=== PATIENT | male | born 1985 | race Caucasian/White ===

== ENCOUNTER 2018-02-16 12:08 | Inpatient (IN) | payer OTHER ==
[2018-02-16 13:20] LABS: HEMATOCRIT 38.4 % (42.0-52.0); HEMOGLOBIN 13.3 g/dl (14.0-18.0); MEAN CORPUSCULAR HEMOGLOBIN 32.5 pg (27.0-33.0); MEAN CORPUSCULAR HGB CONC 34.6 g/dl (32.0-36.5); MEAN CORPUSCULAR VOLUME 93.9 fl (80.0-96.0); PLATELET COUNT, AUTOMATED 165 10^3/uL (150-450); RED BLOOD COUNT 4.09 10^6/uL (4.30-6.10); RED CELL DISTRIBUTION WIDTH 11.1 % (11.5-14.5); WHITE BLOOD COUNT 4.4 10^3/uL (4.0-10.0)
[2018-02-16 13:46] LABS: AMPHETAMINES LEVEL URINE NEGATIVE (NEGATIVE); BARBITURATES URINE NEGATIVE (NEGATIVE); BENZODIAZEPINES URINE POSITIVE (NEGATIVE); CANNABINOIDS URINE NEGATIVE (NEGATIVE); COCAINE METABOLITE URINE NEGATIVE (NEGATIVE); METHADONE URINE NEGATIVE (NEGATIVE); OPIATES URINE NEGATIVE (NEGATIVE); PHENCYCLIDINE URINE NEGATIVE (NEGATIVE)
[2018-02-16 13:54] LABS: ACETAMINOPHEN LEVEL < 2.0 UG/ML (10.0-30.0); ALBUMIN 3.6 GM/DL (3.2-5.2); ALKALINE PHOSPHATASE 93 U/L (45-117); ALT/SGPT 15 U/L (12-78); ANION GAP 6 MEQ/L (8-16); AST/SGOT 13 U/L (7-37); BILIRUBIN,DIRECT < 0.1 MG/DL (0.0-0.2); BILIRUBIN,TOTAL 0.3 MG/DL (0.2-1.0); BLOOD UREA NITROGEN 16 MG/DL (7-18); CALCIUM LEVEL 8.3 MG/DL (8.5-10.1); CARBON DIOXIDE LEVEL 31 MEQ/L (21-32); CHLORIDE LEVEL 104 MEQ/L (98-107); CREATININE FOR GFR 1.32 MG/DL (0.70-1.30); ETHYL ALCOHOL (ETHANOL) < 0.003 % (0.000-0.010); GLOMERULAR FILTRATION RATE > 60.0 (>60); GLUCOSE, FASTING 93 MG/DL (70-100); POTASSIUM SERUM 4.2 MEQ/L (3.5-5.1); SALICYLATE LEVEL < 1.7 MG/DL (5.0-30.0); SODIUM LEVEL 141 MEQ/L (136-145); TOTAL PROTEIN 6.6 GM/DL (6.4-8.2)
[2018-02-16] MEDS ORDERED: MAALOX 30 ML SUSP *UDC PO (16:15)
[2018-02-16] MEDS ORDERED: traZODone 50 MG TAB PO (16:15)
[2018-02-16] MEDS ORDERED: MOM 30ML SUSPENSION UDC PO (16:15)
[2018-02-16] MEDS ORDERED: ACETAMINOPHEN TAB 650MG DOSE (2X325MG) PO (16:15)
[2018-02-16] MEDS: QUEtiapine FUMARATE 100 MG TAB PO (21:00)
[2018-02-16] MEDS: zolPIDEM TARTRATE 10MG TAB PO (21:00)
[2018-02-16] MEDS ORDERED: SUMAtriptan SUCCINATE 25 MG TAB PO (23:00)
[2018-02-17] MEDS: ESCITALOPRAM OXALATE 10 MG TAB (LEXAPRO) PO (08:17)
[2018-02-17] MEDS: MODAFINIL 200MG TABLET PO (11:18)
[2018-02-17] MEDS: NICOTINE 14 MG/24 HR TRANSDERMAL TD (13:01)
[2018-02-17] MEDS: OMEGA-3 1050MG CAPSULE PO (20:53)
[2018-02-17] MEDS: QUEtiapine FUMARATE 200 MG TAB PO (20:53)
[2018-02-17] MEDS: zolPIDEM TARTRATE 10MG TAB PO (20:53)
[2018-02-17] MEDS: NALTREXONE 50 MG TAB PO (20:53)
[2018-02-17] MEDS: PRAZOSIN 1 MG CAP PO (20:53)
[2018-02-18 06:41] LABS: HEMATOCRIT 38.7 % (42.0-52.0); HEMOGLOBIN 13.4 g/dl (14.0-18.0); MEAN CORPUSCULAR HEMOGLOBIN 31.9 pg (27.0-33.0); MEAN CORPUSCULAR HGB CONC 34.6 g/dl (32.0-36.5); MEAN CORPUSCULAR VOLUME 92.1 fl (80.0-96.0); PLATELET COUNT, AUTOMATED 171 10^3/uL (150-450); RED CELL DISTRIBUTION WIDTH 11.2 % (11.5-14.5); WHITE BLOOD COUNT 4.4 10^3/uL (4.0-10.0)
[2018-02-18 07:01] LABS: ALBUMIN 3.5 GM/DL (3.2-5.2); ALBUMIN/GLOBULIN RATIO 1.06 (1.00-1.93); ALKALINE PHOSPHATASE 89 U/L (45-117); ALT/SGPT 18 U/L (12-78); ANION GAP 3 MEQ/L (8-16); AST/SGOT 12 U/L (7-37); BILIRUBIN,TOTAL 0.3 MG/DL (0.2-1.0); BLOOD UREA NITROGEN 18 MG/DL (7-18); CALCIUM LEVEL 8.7 MG/DL (8.5-10.1); CARBON DIOXIDE LEVEL 35 MEQ/L (21-32); CHLORIDE LEVEL 106 MEQ/L (98-107); CREATININE FOR GFR 1.35 MG/DL (0.70-1.30); GLOMERULAR FILTRATION RATE > 60.0 (>60); GLUCOSE, FASTING 94 MG/DL (70-100); POTASSIUM SERUM 3.9 MEQ/L (3.5-5.1); SODIUM LEVEL 144 MEQ/L (136-145); TOTAL PROTEIN 6.8 GM/DL (6.4-8.2)
[2018-02-18] MEDS: ESCITALOPRAM OXALATE 10 MG TAB (LEXAPRO) PO (08:20)
[2018-02-18] MEDS ORDERED: NICOTINE 21MG/24HR 1 EA TRANSDERMAL TD (09:00)
[2018-02-18] MEDS: MODAFINIL 200MG TABLET PO (09:00)
[2018-02-18] MEDS: NICOTINE 14 MG/24 HR TRANSDERMAL TD (16:06)
[2018-02-18] MEDS ORDERED: QUEtiapine FUMARATE 100 MG TAB PO (21:00)
[2018-02-18] MEDS: OMEGA-3 1050MG CAPSULE PO (21:22)
[2018-02-18] MEDS: NALTREXONE 50 MG TAB PO (21:23)
[2018-02-18] MEDS: PRAZOSIN 1 MG CAP PO (21:23)
[2018-02-18] MEDS: QUEtiapine FUMARATE 200 MG TAB PO (21:23)
[2018-02-18] MEDS: zolPIDEM TARTRATE 10MG TAB PO (21:23)
[2018-02-19] MEDS: NICOTINE 14 MG/24 HR TRANSDERMAL TD (08:57)
[2018-02-19] MEDS: ESCITALOPRAM OXALATE 10 MG TAB (LEXAPRO) PO (08:57)
[2018-02-19] MEDS: hydrOXYzine 50 MG TAB PO ×2 (11:52→19:21)
[2018-02-19] MEDS: zolPIDEM TARTRATE 5 MG TAB PO (20:50)
[2018-02-19] MEDS: NALTREXONE 50 MG TAB PO (20:50)
[2018-02-19] MEDS: OMEGA-3 1050MG CAPSULE PO (20:50)
[2018-02-19] MEDS: QUEtiapine FUMARATE 200 MG TAB PO (20:50)
[2018-02-19] MEDS: PRAZOSIN 1 MG CAP PO (20:51)
[2018-02-20] MEDS: ESCITALOPRAM OXALATE 10 MG TAB (LEXAPRO) PO (08:23)
[2018-02-20] MEDS: hydrOXYzine 50 MG TAB PO (08:23)
== END 2018-02-20 12:30 | disposition home or self-care (01) | DRG 882 ==
LOC: M ED 12:08 → M ED INP 16:07 → M PSY 21:00
DX: F43.10 Post-traumatic stress disorder, unspecified (principal); F32.9 Major depressive disorder, single episode, unspecified; F17.220 Nicotine dependence, chewing tobacco, uncomplicated; R51 Headache; T43.605A Adverse effect of unspecified psychostimulants, initial encounter; Z91.82 Personal history of military deployment; R25.8 Other abnormal involuntary movements; Z87.820 Personal history of traumatic brain injury; Z87.442 Personal history of urinary calculi; Z79.899 Other long term (current) drug therapy; Z81.8 Family history of other mental and behavioral disorders; Z81.1 Family history of alcohol abuse and dependence

== ENCOUNTER → 2018-03-31 | Outpatient (CLI) | payer OTHER ==
[~2018-03-31] MED LIST: PROHANCE 279.3MG/ML 15ML VIAL (A9576) As Ordered; PROHANCE 279.3MG/ML 5ML VIAL (A9576) As Ordered
== END ==
LOC: M RAD 07:19
DX: M25.561 Pain in right knee (principal); M25.562 Pain in left knee; M25.461 Effusion, right knee; M25.462 Effusion, left knee; M94.261 Chondromalacia, right knee
CPT/HCPCS: A9576

== ENCOUNTER 2018-04-01 17:41 | Emergency (ER) | payer OTHER ==
[2018-04-01] MEDS: LIDOCAINE 2% MDV 20 ML VIAL SC (19:13)
== END 2018-04-01 20:35 | disposition home or self-care (01) ==
LOC: M ED 17:41
DX: S61.302A Unspecified open wound of right middle finger with damage to nail, initial encounter (principal); S61.210A Laceration without foreign body of right index finger without damage to nail, initial encounter; S61.011A Laceration without foreign body of right thumb without damage to nail, initial encounter; W31.2XXA Contact with powered woodworking and forming machines, initial encounter; Y92.098 Other place in other non-institutional residence as the place of occurrence of the external cause; F41.9 Anxiety disorder, unspecified; F32.9 Major depressive disorder, single episode, unspecified; K57.92 Diverticulitis of intestine, part unspecified, without perforation or abscess without bleeding; Z87.820 Personal history of traumatic brain injury; Z87.442 Personal history of urinary calculi; Z87.891 Personal history of nicotine dependence; Z79.899 Other long term (current) drug therapy
CPT/HCPCS: 73140

== ENCOUNTER 2018-04-08 13:05 | Emergency (ER) | payer OTHER ==
[2018-04-08] MEDS: LIDOCAINE 2% MDV 20 ML VIAL SC (13:45)
== END 2018-04-08 14:10 | disposition home or self-care (01) ==
LOC: M ED 13:05
DX: Z48.02 Encounter for removal of sutures (principal); L08.9 Local infection of the skin and subcutaneous tissue, unspecified; Z87.891 Personal history of nicotine dependence; Z79.899 Other long term (current) drug therapy
CPT/HCPCS: 99282

== ENCOUNTER → 2018-05-03 | Outpatient (CLI) | payer OTHER | LOC: M RAD 08:09 | DX: N20.0 Calculus of kidney (principal) | CPT/HCPCS: 74176 ==

== ENCOUNTER → 2018-06-14 | Outpatient (CLI) | payer OTHER ==
[2018-06-14 12:07] LABS: ERYTHROCYTE SEDIMENTATION RATE 1 mm/hr (0-15)
[2018-06-14 12:12] LABS: FREE T4 0.97 NG/DL (0.76-1.46)
[2018-06-16 00:37] LABS: TISSUE TRANSGLUTAMINASE IgA <2 U/mL (0-3)
== END ==
LOC: M LRY 10:05
DX: R19.4 Change in bowel habit (principal)

== ENCOUNTER → 2018-06-16 | Outpatient (REF) | payer OTHER | LOC: M LAB REF 09:56 | DX: R19.4 Change in bowel habit (principal) ==

== ENCOUNTER 2018-07-07 10:20 | Day surgery (SDC) | payer OTHER ==
[2018-07-07] MEDS: NS 1,000 ML IV (10:45)
[2018-07-07] MEDS ORDERED: PROPOFOL 200 MG/20 ML VIAL As Ordered ×2 (11:00→11:39)
== END 2018-07-07 12:45 | disposition home or self-care (01) ==
LOC: M OPP 10:20
DX: R19.4 Change in bowel habit (principal); R19.7 Diarrhea, unspecified; D12.3 Benign neoplasm of transverse colon; K57.30 Diverticulosis of large intestine without perforation or abscess without bleeding; G47.30 Sleep apnea, unspecified; F41.9 Anxiety disorder, unspecified; F32.9 Major depressive disorder, single episode, unspecified; M17.0 Bilateral primary osteoarthritis of knee; A15.0 Tuberculosis of lung; G43.909 Migraine, unspecified, not intractable, without status migrainosus; Z79.899 Other long term (current) drug therapy; F17.220 Nicotine dependence, chewing tobacco, uncomplicated; Z86.010 Personal history of colon polyps; Z22.322 Carrier or suspected carrier of Methicillin resistant Staphylococcus aureus; Z87.448 Personal history of other diseases of urinary system
CPT/HCPCS: 45385

== ENCOUNTER → 2018-08-02 | Outpatient (CLI) | payer OTHER ==
[~2018-08-02] MED LIST changes: +GLUCAGON FOR INJ 1 MG VIAL (J1610) As Ordered; +ISOVUE-370 76% 100ML VIAL (Q9967) As Ordered; -PROHANCE 279.3MG/ML 15ML VIAL (A9576) As Ordered; -PROHANCE 279.3MG/ML 5ML VIAL (A9576) As Ordered; +VoLumen 0.1% SUSPENSION 450ML BOTTLE As Ordered
== END ==
LOC: M RAD 07:34
DX: R11.2 Nausea with vomiting, unspecified (principal)
CPT/HCPCS: Q9967